=== PATIENT | male | born 1995 | race Caucasian/White ===

== ENCOUNTER 2017-11-15 19:47 | Emergency (ER) | payer OTHER ==
[2017-11-15] MEDS ORDERED: NS 0.9% 1000 ML* 1,000 ML IV ONE (21:24)
[2017-11-15] MEDS ORDERED: Ketorolac INJ* 30 MG/ML 1 ML VIAL IV PUSH ONE (21:24)
[2017-11-15] MEDS ORDERED: Metoclopramide IV* 5 MG/ML 2 ML VIAL IV SLOW PU ONE (21:25)
[2017-11-15 21:27] LABS: ABS Basophils 0 10^3/ul (0-0.2); ABS Eosinophils 0.1 10^3/ul (0-0.6); ABS Lymphocytes 1.1 10^3/ul (1.0-4.8); ABS Monocytes 0.9 10^3/ul (0-0.8); ABS Neutrophils 6.3 10^3/ul (1.5-7.7); ABS Nucleated RBC 0 10^3/ul; Hematocrit 42 % (42-52); Hemoglobin 14.5 g/dl (14.0-18.0); Lymphocyte % 12.9 % (25-47); Mean Corpuscular HGB Conc 34 g/dl (31-36); Mean Corpuscular Hemoglobin 31 pg (27-31); Mean Corpuscular Volume 89 fL (80-94); Mean Platelet Volume 7.5 um3 (7.4-10.4); Nucleated Red Blood Cells % 0; Platelet Count 218 10^3/ul (150-450); Red Blood Count 4.72 10^6/ul (4.0-5.4); Red Cell Distribution Width 13 % (10.5-15); White Blood Count 8.4 10^3/ul (3.5-10.8)
[2017-11-15 21:45] LABS: EGFR Non-African American 109.7 (>60)
[2017-11-15] MEDS ORDERED: Potassium Chlor TAB* 20 MEQ TAB.ER PO ONE (22:31)
[2017-11-15] MEDS ORDERED: Iohexol 300* (CONTRAST) 10 ML SDV IV ONE (22:40)
[2017-11-15 22:51] LABS: Urine Appearance Clear; Urine Blood Negative (Negative); Urine Color Yellow; Urine Ketones Negative (Negative); Urine Protein Negative (Negative); Urine Specific Gravity 1.011 (1.010-1.030); Urine Urobilinogen Positive (Negative)
[2017-11-16 00:07] VITALS: BP 108/61
--- NOTE | 2017-11-16 06:47 | ED ---
Melany Rodriguez Nilda, scribed for Gilbert Dimas MD on 11/15/17 at 2126 . Abdominal Pain/Male - HPI Summary HPI Summary: This patient is a 22 year old M presenting to [facility] with a chief complaint of constant moderate epigastric abd pain since yesterday. The patient rates the pain 4/10 in severity. Symptoms aggravated by PO intake and shifting position, and alleviated by nothing. Patient reports nausea, diarrhea (resolved), fever, chills, and self-induced vomiting. Pt states hes hungry but prefers not to eat. - History of Current Complaint Stated Complaint: ABD PAIN/FEVER Time Seen by Provider: 11/15/17 21:18 Hx Obtained From: Patient Onset/Duration: Sudden Onset, Lasting Days, Still Present Timing: Constant Severity Currently: Moderate Pain Intensity: 4 Pain Scale Used: 0-10 Numeric Location: Epigastric Radiates: No Aggravating Factor(s): Food, Other: - shifting position Alleviating Factor(s): Nothing Associated Signs And Symptoms: Positive: Other - nausea, diarrhea (resolved), fever, chills, and self-induced vomiting. - Allergies/Home Medications Allergies/Adverse Reactions: Allergies Allergy/AdvReac Type Severity Reaction Status Date / Time No Known Allergies Allergy Verified 11/15/17 20:01 Home Medications: Home Medications BuPROPion XL* [Bupropion XL*] 300 mg PO DAILY 11/15/17 [History Confirmed ] Methylphenidate TAB* [Ritalin TAB*] 5 mg PO DAILY 11/15/17 [History Confirmed ] Sertraline* [Zoloft*] 25 mg PO DAILY 11/15/17 [History Confirmed 11/15/17] hydrOXYzine HCL TAB* [Atarax 10 MG TAB*] 10 mg PO EVERY OTHER DAY 11/15/17 [ History Confirmed 11/15/17] PMH/Surg Hx/FS Hx/Imm Hx Psychiatric History: Reports: Hx Depression Denies: Hx Eating Disorder, Hx of Violent Episodes Against Others Infectious Disease History: No Infectious Disease History: Denies: Traveled Outside the [place] in Last 30 Days - Family History Known Family History: Positive: Other - HLD - Social History Alcohol Use: None Substance Use Type: Reports: None Smoking Status (MU): Never Smoked Tobacco Review of Systems Positive: Fever, Chills Positive: Abdominal Pain, Vomiting, Diarrhea, Nausea All Other Systems Reviewed And Are Negative: Yes Physical Exam - Summary Physical Exam Summary: VITAL SIGNS: Reviewed. GENERAL: Patient is a well-developed and nourished male who is lying comfortable in the stretcher. Patient is not in any acute respiratory distress. HEAD AND FACE: No signs of trauma. No ecchymosis, hematomas or skull depressions. No sinus tenderness. EYES: PERRLA, EOMI x 2, No injected conjunctiva, no nystagmus. EARS: Hearing grossly intact. Ear canals and tympanic membranes are within normal limits. MOUTH: Oropharynx within normal limits. NECK: Supple, trachea is midline, no adenopathy, no JVD, no carotid bruit, no c- spine tenderness, neck with full ROM. CHEST: Symmetric, no tenderness at palpation LUNGS: Clear to auscultation bilaterally. No wheezing or crackles. CVS: Regular rate and rhythm, S1 and S2 present, no murmurs or gallops appreciated. ABDOMEN: Soft, non-tender. No signs of distention. No rebound no guarding, and no masses palpated. Bowel sounds are normal. EXTREMITIES: FROM in all major joints, no edema, no cyanosis or clubbing. NEURO: Alert and oriented x 3. No acute neurological deficits. Speech is normal and follows commands. SKIN: Dry and warm Triage Information Reviewed: Yes Vital Signs On Initial Exam: Initial Vitals Temp Pulse Resp BP Pulse Ox 98.6 F 85 16 137/79 96 11/15/17 19:59 11/15/17 19:59 11/15/17 19:59 11/15/17 19:59 11/15/17 19:59 Vital Signs Reviewed: Yes Diagnostics - Vital Signs Vital Signs Temp Pulse Resp BP Pulse Ox 11/15/17 19:59 98.6 F 85 16 137/79 96 - Laboratory Result Diagrams: 11/15/17 21:17 11/15/17 21:17 Lab Statement: Any lab studies that have been ordered have been reviewed, and results considered in the medical decision making process. - CT Abd/Pel CT Interpretation Completed By: Radiologist - normal appearing appendix. Mesenteric adenitis possibly related to enteritis. Dr. Dimas has reviewed this report. Re-Evaluation - Re-Evaluation First Eval Re-Evaluation Time: 23:59 Comment: Reviewed labs and imaging with pt. Pt agreeable to D/C. Abdominal Pain Fem Course/Dx - Course Assessment/Plan: 22 y/o with V/D . Bilat tenderness of lower abd on exam. CT negative. Pt will be D/C with Dx gastroenteritis. - Diagnoses Provider Diagnoses: Gastroenteritis Discharge - Sign-Out/Discharge Documenting (check all that apply): Discharge - home - Discharge Plan Condition: Stable Disposition: HOME Prescriptions: Metoclopramide TAB* [Reglan TAB*] 10 mg PO Q6H PRN #14 tab PRN Reason: Nausea/Vomiting Patient Education Materials: Gastroenteritis (ED) Referrals: [facility] - Naeem BRADY [Primary Care Provider] - 2 Days Additional Instructions: RETURN TO THE EMERGENCY DEPARTMENT FOR CHANGING OR WORSENING SYMPTOMS. The documentation as recorded by the Melany tavares Nilda accurately reflects the service I personally performed and the decisions made by , Gilbert Dimas MD.
--- NOTE | 2017-11-16 07:43 | RAD ---
CLINICAL HISTORY: Abdominal pain and fever COMPARISON: None TECHNIQUE: Contrast enhanced CT examination of the abdomen and pelvis from the lung bases through the initial tuberosities. The patient received 90 mL Omnipaque 300 intravenously prior to imaging. FINDINGS: VISUALIZED LUNG BASES: The visualized lung bases are grossly clear. There is no pleural effusion. ABDOMEN AND PELVIS: The liver, spleen, pancreas and adrenal glands are grossly normal in appearance. The gallbladder is normal. The kidneys are normal in appearance without focal mass, calcification or signs of hydronephrosis. Evaluation of the gastrointestinal tract is limited without oral contrast. The small and large bowel are not distended. The patient's normal appendix is identified in the right lower quadrant measuring 4 mm in diameter with gas in the lumen (sagittal image 70 and coronal image 45). The mesenteric lymph nodes are top normal measuring 9 mm in short access diameter (for example coronal image 35). There is no retroperitoneal lymphadenopathy. The pelvic viscera is normal in appearance. The abdominal aorta and iliac arteries are normal in course and diameter. There are no sinister bone lesions. IMPRESSION: Top normal but not pathologically enlarged mesenteric lymph nodes could be seen in the setting of mesenteric adenitis in this otherwise normal CT of the abdomen and pelvis.
== END 2017-11-16 00:25 | disposition home or self-care (01) ==
LOC: ED 19:47
DX: K52.9 Noninfective gastroenteritis and colitis, unspecified (principal); R11.0 Nausea; R19.7 Diarrhea, unspecified; R50.9 Fever, unspecified
CPT/HCPCS: 36415; 74177; 80053; 81003; 83690; 85025; 86140; 96374; 96375; 99283; A9270-GY; J1885; J2765; Q9967